=== PATIENT | male | born 1965 | race Caucasian/White ===

== ENCOUNTER 2018-06-06 08:24 | Emergency (ER) | payer MEDICAID ==
[~2018-06-06] VITALS: Ht 188 cm; Wt 72.0 kg
[2018-06-06] MEDS ORDERED: KETOROLAC 60 MG/2 ML IM ONE (09:00)
[2018-06-06 09:15] LABS: BASOPHILS # (AUTO) 0.16 x10^3/uL (0-0.1); BASOPHILS % (AUTO) 1 % (0-1); EOSINOPHILS # (AUTO) 0.51 x10^3/uL (0-0.4); EOSINOPHILS % (AUTO) 5 % (1-7); LYMPHOCYTES # (AUTO) 2.71 x10^3/uL (1-3.4); LYMPHOCYTES % (AUTO) 25 % (22-44); MD NO; MEAN CORPUSCULAR HEMOGLOBIN 30.7 pg (27.5-34.5); MEAN CORPUSCULAR HGB CONC 33.6 g/dL (33.2-36.2); MEAN CORPUSCULAR VOLUME 91.5 fL (81-97); MEAN PLATELET VOLUME 7.9 fL (7.4-10.4); MONOCYTES # (AUTO) 0.93 x10^3/uL (0.2-0.8); MONOCYTES % (AUTO) 9 % (2-9); NEUTROPHILS # (AUTO) 6.57 x10^3/uL (1.8-6.8); NEUTROPHILS % (AUTO) 60 % (42-75); PLATELET COUNT 300 x10^3/uL (130-400); RED BLOOD COUNT 4.98 x10^6/uL (4.38-5.82); RED CELL DISTRIBUTION WIDTH 13.6 % (9.4-14.8)
[2018-06-06] MEDS ORDERED: KETOROLAC 30 MG/1 ML ONE (09:17)
[2018-06-06] MEDS ORDERED: DIAZEPAM 5 MG TABLET ONE (09:17)
[2018-06-06 09:25] LABS: ALANINE AMINOTRANSFERASE 25 U/L (12-78); ALBUMIN 3.6 g/dL (3.4-5.0); ANION GAP 6 mmol/L (5-15); CALCIUM 8.9 mg/dL (8.5-10.1); CHLORIDE 106 mmol/L (98-107); CREATININE 0.94 mg/dL (0.7-1.3)
[2018-06-06 09:28] LABS: ALKALINE PHOSPHATASE 78 U/L (45-117); BILIRUBIN,TOTAL 0.3 mg/dL (0.2-1.0); TOTAL PROTEIN 7.6 g/dL (6.4-8.2)
[2018-06-06] MEDS ORDERED: DIAZEPAM 5 MG TABLET PO ONE (09:30)
[2018-06-06 09:34] VITALS: BP 121/82
== END 2018-06-06 11:29 | disposition home or self-care (01) ==
LOC: ED 09:35
DX: G89.29 Other chronic pain (principal); M54.12 Radiculopathy, cervical region
CPT/HCPCS: 36415; 72050; 73030; 80053; 85025; 93005; 96372; 99285; J1885

== ENCOUNTER 2018-11-06 11:30 | Emergency (ER) | payer MEDICAID ==
[~2018-11-06] VITALS: Ht 188 cm; Wt 72.0 kg
[2018-11-06] MEDS ORDERED: KETOROLAC 30 MG/1 ML ONE (12:17)
[2018-11-06] MEDS ORDERED: KETOROLAC 30 MG/1 ML IM ONE (12:30)
[2018-11-06 13:00] VITALS: BP 122/60
--- NOTE | 2018-11-06 13:00 | NUR ---
Patient/Caregiver given discharge instructions and they have confirmed that they understand the instructions. Patient ambulatory with steady gait. Pt. has his prescriptions in hand.
--- NOTE | 2018-11-06 13:02 | NUR ---
Pt. states relief from meds at the time of discharge.
== END 2018-11-06 13:03 | disposition home or self-care (01) ==
LOC: ED 12:47
DX: M51.36 Other intervertebral disc degeneration, lumbar region (principal); H66.3X2 Other chronic suppurative otitis media, left ear; F17.200 Nicotine dependence, unspecified, uncomplicated
CPT/HCPCS: 72110; 96372; 99283; J1885

== ENCOUNTER 2019-09-15 13:05 | Emergency (ER) | payer MEDICAID ==
[~2019-09-15] VITALS: Ht 190.5 cm; Wt 75.0 kg
--- NOTE | 2019-09-15 14:03 | NUR ---
PT WALKED BACK FROM LOBBY TO ROOM AT THIS TIME. STEADY UPON AMBULATION. NAD NOTED.
--- NOTE | 2019-09-15 14:40 | NUR ---
to room 1 from rme per provider
--- NOTE | 2019-09-15 15:00 | NUR ---
lab at bedside
[2019-09-15 15:22] LABS: BASOPHILS # (AUTO) 0.11 x10^3/uL (0-0.1); BASOPHILS % (AUTO) 1 % (0-1); EOSINOPHILS # (AUTO) 0.27 x10^3/uL (0-0.4); EOSINOPHILS % (AUTO) 3 % (1-7); LYMPHOCYTES # (AUTO) 2.33 x10^3/uL (1-3.4); LYMPHOCYTES % (AUTO) 24 % (22-44); MD NO; MEAN CORPUSCULAR HGB CONC 32.6 g/dL (33.2-36.2); MEAN CORPUSCULAR VOLUME 94.9 fL (81-97); MEAN PLATELET VOLUME 8.1 fL (7.4-10.4); MONOCYTES # (AUTO) 0.68 x10^3/uL (0.2-0.8); MONOCYTES % (AUTO) 7 % (2-9); NEUTROPHILS # (AUTO) 6.45 x10^3/uL (1.8-6.8); NEUTROPHILS % (AUTO) 66 % (42-75); PLATELET COUNT 313 x10^3/uL (130-400); RED BLOOD COUNT 5.07 x10^6/uL (4.38-5.82); RED CELL DISTRIBUTION WIDTH 14.2 % (9.4-14.8)
[2019-09-15 15:29] LABS: ALBUMIN 3.6 g/dL (3.4-5.0); ANION GAP 2 mmol/L (5-15); CALCIUM 9.4 mg/dL (8.5-10.1); CHLORIDE 107 mmol/L (98-107)
[2019-09-15 15:41] LABS: ALANINE AMINOTRANSFERASE 25 U/L (12-78); ALKALINE PHOSPHATASE 66 U/L (45-117); BILIRUBIN,TOTAL 0.3 mg/dL (0.2-1.0); CREATININE 0.92 mg/dL (0.7-1.3); T4 (THYROXINE) 6.4 mcg/dL (4.5-12.1); TOTAL PROTEIN 7.4 g/dL (6.4-8.2)
--- NOTE | 2019-09-15 15:50 | NUR ---
After 15 minute nap. Patient awoken for reassessment. Provided with oj/ peanut butter and crackers. After snacks finished Patient Reports "i feel much better."
[2019-09-15 15:56] VITALS: BP 99/56
== END 2019-09-15 16:24 | disposition home or self-care (01) ==
LOC: ED 16:18
DX: G47.30 Sleep apnea, unspecified (principal); F17.210 Nicotine dependence, cigarettes, uncomplicated
CPT/HCPCS: 36415; 80053; 84436; 84443; 85025; 99283

== ENCOUNTER 2020-07-04 08:28 | Emergency (ER) | payer MEDICAID, MEDICARE ==
[~2020-07-04] VITALS: Ht 188 cm; Wt 76.7 kg
--- NOTE | 2020-07-04 09:01 | NUR ---
PATIENT WALKED BACK FROM TRIAGE WITH CHIEF C/O LUMP IN RIGHT ARMPIT X5 DAYS. PATIENT STATES IT HAS GOTTEN WORSE. PATIENT REPORTS TRYING TO "ZACHERY IT LAST NIGHT." AREA IS RED AND TENDER TO THE TOUCH. PATIENT'S PAIN LEVEL IS 10/10. CONNECTED TO VITALS MACHINE, CALL LIGHT WITHIN REACH, NO SIGNS OF ACUTE DISTRESS NOTED.
[2020-07-04] MEDS ORDERED: LIDOCAINE-MPF 1%, 5ML ONE (09:45)
[2020-07-04] MEDS ORDERED: HYDROcodone/APAP 5/325 TABLET ONE (09:46)
--- NOTE | 2020-07-04 09:55 | NUR ---
PATIENT MEDICATED PER [facility]. PROVIDER AT BEDSIDE PERFORMING I&D.
[2020-07-04] MEDS ORDERED: HYDROcodone/APAP 5/325 TABLET PO ONE (10:00)
[2020-07-04] MEDS ORDERED: LIDOCAINE-MPF 1%, 5ML INFIL ONE (10:00)
[2020-07-04 10:08] VITALS: BP 132/79
--- NOTE | 2020-07-04 10:28 | NUR ---
Patient given discharge instructions and prescription and they have confirmed that they understand the instructions. All patient belongings gathered by patient. Patient ambulatory with steady gait to discharge desk.
== END 2020-07-04 10:29 | disposition home or self-care (01) ==
LOC: ED 09:21
DX: L02.413 Cutaneous abscess of right upper limb (principal); F17.210 Nicotine dependence, cigarettes, uncomplicated
CPT/HCPCS: 10060; 99284